=== PATIENT | female | born 1935 | race Caucasian/White ===

== ENCOUNTER 2021-05-15 18:09 | Emergency (ER) | payer MEDICARE ==
[2021-05-15 18:40] LABS: HEMOGLOBIN 9.4 gm/dl (12.3-15.3); RED BLOOD COUNT 3.8 M/UL (4.00-5.10); WHITE BLOOD COUNT 6.5 K/UL (4.5-11.0)
[2021-05-15 19:23] LABS: BUN/CREATININE RATIO 22 (0-10)
[2021-05-15] MEDS ORDERED: LEVOFLOXACIN750 MG PO (20:12)
== END 2021-05-15 20:55 | disposition home or self-care (01) ==
LOC: ER1 18:09
PROVIDERS: Emergency Medicine
DX: N39.0 Urinary tract infection, site not specified (principal); R41.0 Disorientation, unspecified; I25.10 Atherosclerotic heart disease of native coronary artery without angina pectoris
CPT/HCPCS: 51701; 70450; 80053; 81001; 82550; 82553; 83874; 84484; 85025; 85610; 85730; 99284

== ENCOUNTER → 2021-05-21 | Outpatient (CLI) | payer MEDICARE ==
[~2021-05-21] MED LIST: LEVOFLOXACIN750 MG PO
== END ==
LOC: LBRF 14:36
DX: N39.0 Urinary tract infection, site not specified (principal); R30.0 Dysuria
CPT/HCPCS: 81001; 87086